=== PATIENT | female | born 1980 | race Caucasian/White ===

== ENCOUNTER 2023-09-01 00:37 | Emergency (ER) | payer MEDICAID ==
[~2023-09-01] VITALS: Ht 162.6 cm; Wt 87.3 kg
[2023-09-01 00:54] VITALS: TEMP 95.7
--- NOTE | 2023-09-01 01:44 | NUR ---
PT IS RESTING QUIETLY IN ER BED 14. PT OPENS EYES SPONTANIOUSLY. RR ARE EQUAL AND UNLABORED. PT REQUESTED WATER. PER MD PT MAY HAVE ICE CHIPS ONLY AT THIS TIME.
--- NOTE | 2023-09-01 02:20 | NUR ---
PT IS STILL OPENING EYES SPONTANIOUSLY. RR ARE EQUAL AND UNLABORED. PTS O2 IS DROPPING TO THE 80S AT TIMES. MD DODGE NOTIFIED. PER MD HAVE THE PT BREATH DEEPLY TO ATTEMPT TO BRING O2 SATURATION IN THE 90S BEFORE PLACING THE PT ON NASAL CANULA.
--- NOTE | 2023-09-01 03:11 | NUR ---
PT RESTING IN BED WITH EYES CLOSED BUT OPENS EYES TO NAME. RR ARE EQUAL AND UNLABORED BUT SHALLOW. PT STILL BEING ENCOURAGED BY NURSING AND MD TO TAKE DEEP BREATHS.
--- NOTE | 2023-09-01 04:02 | NUR ---
PT RESTING IN BED WITH EYES CLOSED. RR ARE EQUAL AND UNLABORED. PT IS MAINTAINING O2 SATURATION IN THE 90S ON ROOM AIR.
--- NOTE | 2023-09-01 05:19 | NUR ---
PT UP FOR A ROAD TEST WITH EMT. PER EMT PT WAS ABLE TO AMBULATE WITHOUT ASSISTANCE AND MAINTAINED O2 SATURATION AT 97% ON RA.
[2023-09-01 05:47] VITALS: BP 188/118; PULSE 101; RESP 20; O2SAT 94
[2023-09-01] MEDS ORDERED: naloxone 2mg/2ml inj ONE (08:00)
[2023-09-01] MEDS ORDERED: sod chloride 0.9% 10ml flush syringe IV ONE (08:00)
== END 2023-09-01 05:49 | disposition home or self-care (01) ==
LOC: ER 00:39 → EDBD 00:39 → ER 05:49
DX: T40.601A Poisoning by unspecified narcotics, accidental (unintentional), initial encounter (principal); Z79.899 Other long term (current) drug therapy; Y92.89 Other specified places as the place of occurrence of the external cause
CPT/HCPCS: 93005; 99285; J2310; A4615

== ENCOUNTER 2024-04-01 18:54 | Emergency (ER) | payer MEDICAID | END 2024-04-01 19:51 | disposition left against medical advice (07) | LOC: ER 18:55 | DX: K08.89 Other specified disorders of teeth and supporting structures (principal); Z53.21 Procedure and treatment not carried out due to patient leaving prior to being seen by health care provider ==

== ENCOUNTER 2025-09-01 10:46 | Emergency (ER) | payer MEDICAID ==
[~2025-09-01] VITALS: Ht 162.6 cm; Wt 101.8 kg
[2025-09-01] MEDS ORDERED: VALS1TAB76 PO (11:03)
--- NOTE | 2025-09-01 11:04 | Physician Documentation ---
History of Present Illness General Chief Complaint: Medication Request Stated Complaint: HIGH BLOOD PRESSURE Time Seen by MD: 11:00 Primary Medical Doctor: nakul History of Present Illness Initial Comments 45-year-old female with known hypertensive history sent to the emergency department by primary care physician for evaluation of high blood pressure. Noted to have blood pressures 227 systolic and 126 diastolic. Received 0.2 mg of clonidine in the clinic in the referred to the emergency department. He has had vague complaint of headaches without chest pain, palpitations, dependent edema and/or dizziness or syncope. 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 Reports that a new primary care physician has her aligned with cardiology referral other referrals, labs and a follow up appointment in one week. She has been without blood pressure medication for some time. She is without chest pain and/or dyspnea on exertion at this time Medication Reconciliation Allergies: Coded Allergies: No Known Allergies (Unverified , 09/01/25) Scheduled Valsartan/Hydrochlorothiazide (Valsartan-Hctz 160-12.5 Mg Tab), 1 TAB PO DAILY Past Medical History Past Medical History: No Pertinent History Past Surgical History: noncontributory Alcohol Use: Other Drug Use: other Review of Systems All Other Systems at this time: Reviewed and Negative Neuro: Reports: headache Physical Exam Physical Exam Vital Signs: RN Vital Signs have been reviewed: Yes, Temperature: 97.8, Source: Oral, Heart Rate: 99, Respiratory Rate: 18, BP: 185/126, Pulse Oximetry: 99, Weight: 101.800 Oxygen Flow Rate: 0 General Appearance: alert, WD/WN, other (Anxious) Head: normal inspection Face: normal inspection Pupils/EOM/Fundus: PERRLA Ear: auricle normal Neck: non-tender Respiratory: lungs clear, normal breath sounds Chest: no accessory muscle use Cardiovascular: normal peripheral pulses, no gallop, no JVD, no murmur, tachycardia Gastrointestinal: normal palpation Extremities: normal range of motion, no edema Neurologic: oriented x4, 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 No need for additional blood pressure medication in the emergency department at this time. Blood pressure has reduced systolic leave by 30-40 points and diastolic in the light 15-20 points. Patient remains without chest pain and headache and/or dizziness. I will be placing her on valsartan/hydrochlorothiazide combination. She will keep all scheduled appointments. No clinical suspicion for hypertensive urgency, emergency and/or end-organ damage. She safely discharged in the emergency department with clear discharge instructions. Differential Diagnosis Differentials include but not limited to, hypertensive urgency, hypertensive emergency, end-organ damage, TIA, CVA, acute coronary syndrome, CHF. Departure Disposition: HOME / SELF CARE / HOMELESS Impression: Primary Impression: Hypertension Qualified Codes: I10 - Essential (primary) hypertension Condition: Improved Discharge Instructions: Medical Screening Exam Referrals: NO PRIMARY CARE PROVIDER (PCP) Prescriptions Valsartan/Hydrochlorothiazide (VALSARTAN-HCTZ 160-12.5 MG TAB) 160 Mg-12.5 Mg Tablet 1 TAB PO DAILY for 30 Days, #30 TAB 0 Refills Prov: MEREDITH LOPEZ 09/01/25 Education Educated: Patient Educated regarding: diagnosis, treatment, prognosis, need for follow up Signature Scribe Signature: . Attestation: . MEREDITH LOPEZ Sep 01, 2025 11:04
[2025-09-01 11:13] VITALS: BP 165/105; PULSE 100; RESP 18; TEMP 97.8; O2SAT 99
== END 2025-09-01 11:26 | disposition home or self-care (01) ==
LOC: ER 10:47
DX: I10 Essential (primary) hypertension (principal)
CPT/HCPCS: 99282; 99283